=== PATIENT | male | born 1940 | race Caucasian/White ===

== ENCOUNTER 2017-10-28 20:40 | Emergency (ER) | payer MEDICARE, BC ==
[2017-10-28] MEDS ORDERED: diphenhydrAMINE 25 MG CAP ONE (20:59)
[2017-10-28] MEDS ORDERED: methylPREDNISolone Sod Succ/PF 125 MG/2 ML VIAL ONE (21:00)
[2017-10-28] MEDS ORDERED: Water For Inject, Bacteriostat 30 ML ONE (21:01)
== END 2017-10-28 21:20 | disposition home or self-care (01) ==
LOC: SCSER 20:40
DX: T78.40XA Allergy, unspecified, initial encounter; L03.114 Cellulitis of left upper limb; E78.5 Hyperlipidemia, unspecified; N40.0 Benign prostatic hyperplasia without lower urinary tract symptoms; Z79.82 Long term (current) use of aspirin; Z79.899 Other long term (current) drug therapy; M81.0 Age-related osteoporosis without current pathological fracture
CPT/HCPCS: 96372; J2930

== ENCOUNTER 2018-01-06 04:56 | Emergency (ER) | payer MEDICARE, BC | END 2018-01-06 05:42 | disposition home or self-care (01) | LOC: SCSER 04:56 | DX: R04.0 Epistaxis (principal); N40.0 Benign prostatic hyperplasia without lower urinary tract symptoms; K21.9 Gastro-esophageal reflux disease without esophagitis; E78.5 Hyperlipidemia, unspecified; M81.0 Age-related osteoporosis without current pathological fracture; Z79.899 Other long term (current) drug therapy; Z79.82 Long term (current) use of aspirin | CPT/HCPCS: 99283 ==

== ENCOUNTER 2019-01-06 10:16 | Emergency (ER) | payer MEDICARE, BC ==
[2019-01-06 11:08] LABS: #Basophils 0.1 thou/uL (0.0-0.2); #Eosinphils 0.2 thou/uL (0.0-0.7); #Lymphocytes 0.9 thou/uL (1.20-3.40); #Monocytes 0.6 thou/uL (0.11-0.59); #Neutrophils 3.2 thou/uL (1.40-6.50); %Basophils 1.3 % (0.0-1.0); %Eosinophils 3.9 % (0.0-10.0); %Lymphocytes 17.7 % (21.0-51.0); %Monocytes 11.9 % (0.0-10.0); %Neutrophils 65.2 % (42.0-75.0); Hemoglobin 11.8 g/dL (14.0-18.0); Mean Corpuscular HGB CONC 33.3 g/dL (32.0-36.0); Mean Corpuscular Hemoglobin 31.4 pg (27.0-31.0); Mean Corpuscular Volume 94.1 fL (78.0-98.0); Mean Platelet Volume 9.5 fL (7.4-10.4); Platelet Count 199 thou/uL (130-400); RBC Distribution Width 12.7 % (11.5-14.5); Red Blood Cell (RBC) Count 3.77 mill/uL (4.70-6.10); White Blood Cell (WBC) Count 4.9 thou/uL (4.8-10.8)
[2019-01-06] MEDS ORDERED: Morphine 4 MG/ML VIAL ONE (11:13)
[2019-01-06 11:23] LABS: ALT (SGPT) 13 U/L (8-55); AST (SGOT) 17 U/L (5-34); Albumin 3.6 g/dL (3.4-4.8); Alkaline Phosphatase 54 U/L (40-150); Anion Gap 14 mmol/L (10-20); BUN (Urea Nitrogen) 20 mg/dL (8.4-25.7); Bilirubin, Total 0.6 mg/dL (0.2-1.2); CK (CPK) 164 U/L (30-200); Calc. Creatinine Clearance 0 mL/min (70-130); Carbon Dioxide 26 mmol/L (23-31); Estimated GFR-MDRD 73; Globulin 3.3 g/dL (2.4-3.5); Glucose 108 mg/dL (83-110); Lipase 7 U/L (8-78); Protein, Total 6.9 g/dL (5.8-8.1)
[2019-01-06 11:26] LABS: Chloride 101 mmol/L (98-107); Potassium 4.5 mmol/L (3.5-5.1); Sodium 136 mmol/L (136-145)
--- NOTE | 2019-01-06 11:48 | CT ---
CT THORACIC SPINE WITH CORONAL AND SAGITTAL REFORMATIONS: HISTORY: Right-sided mid back pain. FINDINGS/IMPRESSION: Multilevel degenerative changes are present. There is mild to moderate compression of T7 vertebral b vimal, likely old. No subluxation or retropulsion is seen. There are chronic changes in the lung [place]. Vascular calcifications are present without evidence o f aneurysmal dilatation of the descending thoracic and upper abdominal aorta. POS: [facility]
--- NOTE | 2019-01-06 13:03 | CT ---
CTA OF THE CHEST AND ABDOMEN WITH CONTRAST: HISTORY: Right-sided mid back pain for 1 week. TECHNIQUE: Multiple contiguous axial images were obtained in a CTA of chest and abdomen with contrast. Three-D sagittal, coronal, and MIP reformats were performed. FINDINGS: The heart is normal in size without focal cardiac abnormality. No hilar or mediastinal lymphadenopat hy is seen. No focal infiltrates or suspicious pulmonary nodules are seen. Atelectasis is seen in the dependent aspect of the lungs. There are multiple remote right posterior rib fractures. The chest wall soft tissues are unremarkabl e. Gallstones are seen in the gallbladder. There are numerous cysts in the right kidney measuring up to 3.6 cm in size. The liver, left kidney, adrenal glands, spleen, and pancreas are unremarkable. The patient has a 2.1 cm fat-containing umbilical hernia. Degenerative changes are seen in the spine. There are bilateral L5 pars defects with grade I anterolisthesis of L5 on S1. No abdominal adenopath y is seen. The thoracic aorta is normal in caliber without evidence of aneurysmal dilatation or focal dissection . The abdominal aorta is also normal in caliber without significant aneurysmal dilatation or dissect ion. Mild atherosclerotic disease is seen in the infrarenal abdominal aorta. The celiac trunk, SMA, and JUAN C are patent. A single renal artery is seen on each side with minimal a therosclerotic disease. IMPRESSION: 1. No evidence of aortic dissection or aneurysmal dilatation. 2. Cholelithiasis. 3. Right renal cysts. 4. Umbilical hernia. POS: [facility]
== END 2019-01-06 12:33 | disposition home or self-care (01) ==
LOC: SCSER 10:16
DX: M54.6 Pain in thoracic spine (principal); K21.9 Gastro-esophageal reflux disease without esophagitis; E78.5 Hyperlipidemia, unspecified; Z79.899 Other long term (current) drug therapy; Z79.82 Long term (current) use of aspirin
CPT/HCPCS: 71275; 72128; 80053; 82550; 83690; 84484; 85025; 85379; 93005; 96374; J2270

== ENCOUNTER 2019-01-17 07:50 | Outpatient (CLI) | payer MEDICARE, BC ==
--- NOTE | 2019-01-17 11:20 | NM ---
EXAM: Nuclear medicine cardiac SPECT with EF and wall motion: HISTORY: Chest pain, dyslipidemia Protocol: Exam was performed using Lexiscan protocol. Patient was injected with 31.1 mCi technetium 99m sestamibi intravenously for stress images. Patient was injected with 10.3 mCi technetium 99m sestamibi intravenously for resting images. Multiple SPECT images are performed in the short axis, vertical long axis, and horizontal long axis. FINDINGS: No scan evidence for infarct or ischemia. TID:1.1 LHR:0.36 EDV:65 mL EF:66% Wall motion:Within normal limits. IMPRESSION: Unremarkable cardiac SPECT with EF and wall motion.
== END 2019-01-17 07:51 | disposition home or self-care (01) ==
LOC: NM 07:50
PROVIDERS: ATTEND Internal Medicine
DX: R07.9 Chest pain, unspecified (principal)
CPT/HCPCS: 78452; 93017; A9500

== ENCOUNTER 2020-01-20 08:27 | Outpatient (CLI) | payer MEDICARE, BC, OTHER ==
[2020-01-20 16:33] LABS: #Eosinphils 0.1 thou/uL (0.0-0.7); #Monocytes 0.5 thou/uL (0.11-0.59); #Neutrophils 3.4 thou/uL (1.40-6.50); %Basophils 0.7 % (0.0-1.0); %Eosinophils 2.1 % (0.0-10.0); %Lymphocytes 20.4 % (21.0-51.0); %Monocytes 10.3 % (0.0-10.0); %Neutrophils 66.5 % (42.0-75.0); Hemoglobin 13.1 g/dL (14.0-18.0); Mean Corpuscular HGB CONC 32.6 g/dL (32.0-36.0); Mean Platelet Volume 9.3 fL (7.4-10.4); Platelet Count 175 thou/uL (130-400); RBC Distribution Width 12.4 % (11.5-14.5); Red Blood Cell (RBC) Count 3.98 mill/uL (4.70-6.10); White Blood Cell (WBC) Count 5.1 thou/uL (4.8-10.8)
[2020-01-20 16:54] LABS: Anion Gap 12 mmol/L (10-20); BUN (Urea Nitrogen) 17 mg/dL (8.4-25.7); Calc. Creatinine Clearance 0 mL/min (70-130); Carbon Dioxide 29 mmol/L (23-31); Chloride 100 mmol/L (98-107); Estimated GFR-MDRD 73; Glucose 97 mg/dL (83-110); Potassium 4.7 mmol/L (3.5-5.1); Sodium 136 mmol/L (136-145)
[2020-01-21 12:19] LABS: SARS-CoV-2 MS2 Positive; SARS-CoV-2 N Gene Negative; SARS-CoV-2 S Gene Negative; SARS-CoV-2 orf1ab Negative
--- NOTE | 2020-01-22 18:04 | EKG ---
Test Reason : Blood Pressure : / mmHG Vent. Rate : 058 BPM Atrial Rate : 058 BPM P-R Int : 230 ms QRS Dur : 074 ms QT Int : 386 ms P-R-T Axes : 034 -32 043 degrees QTc Int : 378 ms Sinus bradycardia with 1st degree A-V block Left axis deviation Abnormal ECG When compared with ECG of 06-JAN-2019 10:49, No significant change was found Confirmed by SULMA WALTON (2) on 01/22/2020 6:04:29 PM Referred By: PRITI Confirmed By:SULMA WALTON
== END 2020-01-20 08:28 | disposition home or self-care (01) ==
LOC: LABBT 08:27
PROVIDERS: ATTEND Surgery
DX: Z01.818 Encounter for other preprocedural examination (principal); Z11.59 Encounter for screening for other viral diseases; K43.2 Incisional hernia without obstruction or gangrene
CPT/HCPCS: 80048; 85025; U0003; 87635; 93005; 93010

== ENCOUNTER 2020-01-23 07:03 | Day surgery (SDC) | payer MEDICARE, BC ==
[2020-01-17 11:36] VITALS: BMI 21.7
[2020-01-23] MEDS ORDERED: Bupivacaine 0.25% HCL 30 ML VIAL ONE (09:02)
[2020-01-23] MEDS ORDERED: Lidocaine 1% w/Epinephrine 1:100K 20 ML VIAL ONE (09:02)
[2020-01-23] MEDS ORDERED: Fentanyl 100 MCG/2 ML VIAL ONE ×3 (09:11→11:17)
[2020-01-23] MEDS ORDERED: SUGAMMADEX SODIUM 200 MG/2 ML VIAL ONE (09:11)
[2020-01-23] MEDS ORDERED: Promethazine HCl 25 MG/ML VIAL SLOW IVP PRN (10:45)
[2020-01-23] MEDS ORDERED: Promethazine HCl 25 MG/ML VIAL IM PRN (10:45)
[2020-01-23] MEDS ORDERED: Ondansetron HCl/PF 4 MG/2 ML Vial IVP PRN (10:45)
[2020-01-23] MEDS ORDERED: Rocuronium Bromide 10 MG/ML (10ML VIAL) ONE (11:43)
[2020-01-23] MEDS ORDERED: PROPOFOL 200 MG/20 ML VIAL ONE (11:43)
[2020-01-23] MEDS ORDERED: Lidocaine 1% PF 5 ML VIAL ONE (11:43)
[2020-01-23] MEDS ORDERED: Ondansetron PF 4 MG/2 ML Vial ONE (11:43)
[2020-01-23] MEDS ORDERED: EPHEDRINE 25 MG/5 ML SYRINGE ONE (11:43)
[2020-01-23] MEDS ORDERED: Labetalol HCl 100 MG/20 ML VIAL ONE (11:43)
[2020-01-23] MEDS ORDERED: Glycopyrrolate 0.2 MG/ML 5 ML SYRINGE ONE (11:43)
[2020-01-23] MEDS ORDERED: Esmolol 100 MG/10 ML VIAL ONE (11:43)
--- NOTE | 2020-01-23 11:48 | OP ---
DATE OF PROCEDURE: 01/23/2020 PREOPERATIVE DIAGNOSIS: Incisional hernia. POSTOPERATIVE DIAGNOSIS: Incisional hernia. PROCEDURE PERFORMED: Da Gonzalez laparoscopic incisional hernia repair with mesh, Bard Ventralex 8 cm. ANESTHESIA: General. ESTIMATED BLOOD LOSS: Minimal. COMPLICATIONS: None. FINDINGS: Incisional hernia. DESCRIPTION OF PROCEDURE: The patient was taken to the operating room and laid supine on the operating room table. After general anesthetic was obtained, the abdomen was prepped and draped in a sterile fashion. Left subcostal 5-mm Optiview trocar was placed in the usual fashion without injury. High-flow pneumoperitoneum was obtained. Left and right upper abdominal 8-mm robot trocars were placed under direct visualization. The 5-mm subxiphoid switched out to 11-mm robot balloon trocar. The robot was brought in from the feet and all ports were docked to the robot. The surgeon goes to the console. The peritoneum was taken down, exposing the defect just above the umbilicus from previous abdominal surgery. There was a 2nd smaller defect near the umbilicus. A 0 V-Loc suture was used to approximate the fascia in a running fashion. Both openings were closed with the same suture. An 8-cm Ventralex ST mesh was brought and the exposed mesh side was placed up against the fascia. The nonadherent was left down. A 2-0 V-Loc was used to suture it to the posterior fascia. All needles are removed from the abdomen and accounted for. All port sites were infiltrated using local anesthetic and removed under direct visualization. Pneumoperitoneum was let down. PDS was used to close the fascial defect from the subcostal incision. All incisions were irrigated and closed using 4-0 Monocryl and Dermabond. The patient was sent to Recovery in stable condition. All instrument counts, needle counts, and lap counts were correct. Job ID: [id number]
[2020-01-23] MEDS ORDERED: HYDROcodone/Acetaminophen 5/325 mg Tablet ONE (12:16)
== END 2020-01-23 13:35 | disposition home or self-care (01) ==
LOC: SDC 07:03
PROVIDERS: ATTEND Surgery
PROC: 0WUF4JZ Supplement Abdominal Wall with Synthetic Substitute, Percutaneous Endoscopic Approach (ICD-10-PCS; principal; 2020-01-23)
DX: K43.2 Incisional hernia without obstruction or gangrene (principal); Z79.82 Long term (current) use of aspirin; Z79.899 Other long term (current) drug therapy
CPT/HCPCS: J0690; J2001; J2405; J2704; J3010; S0020

== ENCOUNTER 2020-10-24 12:27 | Emergency (ER) | payer MEDICARE, BC ==
[2020-10-24] MEDS ORDERED: predniSONE 20 MG TAB ONE (13:47)
== END 2020-10-24 16:30 | disposition home or self-care (01) ==
LOC: ERS 12:27
DX: S32.011A Stable burst fracture of first lumbar vertebra, initial encounter for closed fracture (principal); M51.36 Other intervertebral disc degeneration, lumbar region; K21.9 Gastro-esophageal reflux disease without esophagitis; E78.5 Hyperlipidemia, unspecified; M19.90 Unspecified osteoarthritis, unspecified site; M81.0 Age-related osteoporosis without current pathological fracture; Z79.82 Long term (current) use of aspirin; Z79.899 Other long term (current) drug therapy; X58.XXXA Exposure to other specified factors, initial encounter
CPT/HCPCS: 72131; J7512

== ENCOUNTER 2020-10-29 11:19 | Emergency (ER) | payer MEDICARE, BC | END 2020-10-29 13:57 | disposition home or self-care (01) | LOC: ERS 11:19 | DX: S32.011A Stable burst fracture of first lumbar vertebra, initial encounter for closed fracture (principal); K21.9 Gastro-esophageal reflux disease without esophagitis; E78.5 Hyperlipidemia, unspecified; M19.90 Unspecified osteoarthritis, unspecified site; M81.0 Age-related osteoporosis without current pathological fracture; Z79.899 Other long term (current) drug therapy; Z79.82 Long term (current) use of aspirin; X50.1XXA Overexertion from prolonged static or awkward postures, initial encounter; Y92.39 Other specified sports and athletic area as the place of occurrence of the external cause | CPT/HCPCS: 99283 ==

== ENCOUNTER 2020-11-03 14:20 | Outpatient (CLI) | payer MEDICARE, BC | END 2020-11-03 14:21 | disposition home or self-care (01) | LOC: TBSIIMAG 14:20 | PROVIDERS: ATTEND Surgery | DX: M54.16 Radiculopathy, lumbar region (principal) | CPT/HCPCS: 72100 ==

== ENCOUNTER 2020-12-04 11:10 | Outpatient (CLI) | payer MEDICARE, BC | END 2020-12-04 11:11 | disposition home or self-care (01) | LOC: TBSIIMAG 11:10 | PROVIDERS: ATTEND Surgery | DX: S32.009A Unspecified fracture of unspecified lumbar vertebra, initial encounter for closed fracture (principal) | CPT/HCPCS: 72100 ==

== ENCOUNTER 2022-03-03 08:07 | Outpatient (CLI) | payer MEDICARE, BC | END 2022-03-03 08:08 | disposition home or self-care (01) | LOC: SCSMRI 08:07 | PROVIDERS: ATTEND Anesthesiology Pain Medicine | DX: S22.089G Unspecified fracture of T11-T12 vertebra, subsequent encounter for fracture with delayed healing (principal); M47.816 Spondylosis without myelopathy or radiculopathy, lumbar region; R60.0 Localized edema; Z98.890 Other specified postprocedural states | CPT/HCPCS: 72148 ==

== ENCOUNTER 2023-04-28 13:06 | Outpatient (CLI) | payer MEDICARE, BC | END 2023-04-28 13:07 | disposition home or self-care (01) | LOC: BICMAMMO 13:06 | PROVIDERS: ATTEND Internal Medicine | DX: M81.0 Age-related osteoporosis without current pathological fracture (principal); M85.851 Other specified disorders of bone density and structure, right thigh | CPT/HCPCS: 77080 ==

== ENCOUNTER 2023-06-27 13:53 | Day surgery (SDC) | payer MEDICARE, BC ==
[~2023-06-27 13:53] MED LIST: ROMOSOZUMAB-AQQG 210 MG/2.34 ML SYR SQ SCH
[2023-06-27 14:48] VITALS: BP 113/70; TEMP 97.4
== END 2023-06-27 15:10 | disposition home or self-care (01) ==
LOC: ONC/OP 13:53
PROVIDERS: ATTEND Internal Medicine
DX: M81.0 Age-related osteoporosis without current pathological fracture (principal)
CPT/HCPCS: 96372; J3111

== ENCOUNTER 2023-07-26 14:00 | Day surgery (SDC) | payer MEDICARE, BC ==
[2023-07-26 15:06] VITALS: BP 86/55; TEMP 97.8
== END 2023-07-26 15:15 | disposition home or self-care (01) ==
LOC: ONC/OP 14:00
PROVIDERS: ATTEND Internal Medicine
DX: M81.0 Age-related osteoporosis without current pathological fracture (principal)
CPT/HCPCS: 96372; J3111

== ENCOUNTER 2023-09-21 13:49 | Day surgery (SDC) | payer MEDICARE ==
[2023-09-21] MEDS: ROMOSOZUMAB-AQQG 210 MG/2.34 ML SYR SQ SCH (14:18)
[2023-09-21 14:27] VITALS: BP 110/70; TEMP 97.8
== END 2023-09-21 14:27 | disposition home or self-care (01) ==
LOC: ONC/OP 13:49
PROVIDERS: ATTEND Internal Medicine
DX: M81.0 Age-related osteoporosis without current pathological fracture (principal)
CPT/HCPCS: 96372; J3111

== ENCOUNTER 2023-10-19 13:50 | Day surgery (SDC) | payer MEDICARE ==
[2023-10-19] MEDS: ROMOSOZUMAB-AQQG 210 MG/2.34 ML SYR SQ SCH (14:13)
[2023-10-19 15:04] VITALS: BP 98/56; TEMP 97.6
== END 2023-10-19 14:21 | disposition home or self-care (01) ==
LOC: ONC/OP 13:50
PROVIDERS: ATTEND Internal Medicine
DX: M81.0 Age-related osteoporosis without current pathological fracture (principal)
CPT/HCPCS: 96372; J3111

== ENCOUNTER 2023-12-21 09:15 | Outpatient (CLI) | payer MEDICARE ==
[2023-12-21 11:11] LABS: #Basophils 0.04 10x3/uL (0.0-0.2); #Eosinphils 0.21 10x3/uL (0.0-0.5); #Monocytes 0.54 10x3/uL (0.0-1.1); #Neutrophils 3.25 10x3/uL (1.5-8.4); %Basophils 0.8 % (0.0-2.0); %Eosinophils 4.2 % (0.0-6.0); %Lymphocytes 19.4 % (18.0-47.0); %Monocytes 10.7 % (0.0-10.0); %Neutrophils 64.5 % (40.0-75.0); Hematocrit 37.5 % (38.8-50.0); Hemoglobin 12.6 g/dL (13.5-17.5); Mean Corpuscular HGB CONC 33.6 g/dL (32.0-36.0); Mean Corpuscular Hemoglobin 33.2 pg (27.0-33.0); Mean Corpuscular Volume 98.7 fl (81.2-95.1); Mean Platelet Volume 11.6 fl (7.4-10.4); Platelet Count 193 10x3/uL (150-450); RBC Distribution Width 13.1 % (11.5-14.5)
[2023-12-21 11:31] LABS: Anion Gap 12 mmol/L (10-20); BUN (Urea Nitrogen) 28 mg/dL (8.4-25.7); Calc. Creatinine Clearance 0 mL/min (70-130); Calcium 9.1 mg/dL (7.8-10.44); Carbon Dioxide 29 mmol/L (23-31); Chloride 102 mmol/L (98-107); Estimated GFR 62; Glucose 91 mg/dL (83-110); Potassium 4.2 mmol/L (3.5-5.1); Sodium 139 mmol/L (136-145)
== END 2023-12-21 09:16 | disposition home or self-care (01) ==
LOC: LABBT 09:15
PROVIDERS: ATTEND Surgery
DX: Z01.818 Encounter for other preprocedural examination (principal); K44.9 Diaphragmatic hernia without obstruction or gangrene
CPT/HCPCS: 80048; 85025; 93005; 93010

== ENCOUNTER 2023-12-21 09:30 | Inpatient (IN) | payer MEDICARE ==
[2023-12-21 10:01] VITALS: BMI 19.6
[2023-12-28] MEDS ORDERED: Sodium Chloride 0.9% 100 ML ONE (06:34)
[2023-12-28] MEDS ORDERED: CEFAZOLIN 2 GM VIAL ONE (06:34)
[2023-12-28] MEDS ORDERED: EPINEPHrine 1 MG/ML VIAL ONE (06:46)
[2023-12-28] MEDS ORDERED: Bupivacaine 0.25% HCL 30 ML VIAL ONE ×2 (06:46→08:23)
[2023-12-28] MEDS ORDERED: PROPOFOL 20 ML ONE (07:10)
[2023-12-28] MEDS ORDERED: Dexamethasone 4 mg/ml Vial ONE (07:11)
[2023-12-28] MEDS ORDERED: Lidocaine 1% PF 5 ML VIAL ONE (07:11)
[2023-12-28] MEDS ORDERED: Rocuronium Bromide 10 MG/ML (10ML VIAL) ONE (07:11)
[2023-12-28] MEDS ORDERED: Ondansetron PF 4 MG/2 ML Vial ONE (07:11)
[2023-12-28] MEDS ORDERED: ePHEDrine Sulfate 50 MG/10 ML VIAL ONE (08:16)
[2023-12-28] MEDS ORDERED: fentaNYL PF 100 MCG/2 ML SYRINGE ONE (08:46)
[2023-12-28] MEDS ORDERED: Esmolol 100 MG/10 ML VIAL ONE (08:57)
[2023-12-28] MEDS ORDERED: SUGAMMADEX SODIUM 200 MG/2 ML VIAL ONE ×2 (09:23→09:35)
[2023-12-28] MEDS ORDERED: fentaNYL 50 mcg/mL 1 mL Vial ONE ×2 (09:55→10:04)
[2023-12-28] MEDS ORDERED: HYDROmorphone 0.5 MG/0.5 ML SYRINGE ONE ×3 (10:18→11:23)
[2023-12-28] MEDS ORDERED: hydrALAZINE 20 MG/ML VIAL ONE (12:40)
== END 2023-12-28 13:38 | disposition home or self-care (01) | DRG 328 ==
LOC: SURG A 12-28 06:02 → EDSTATUS 12-28 09:30
PROVIDERS: ADMIT Surgery; ATTEND Surgery
PROC: 0BQT4ZZ Repair Diaphragm, Percutaneous Endoscopic Approach (ICD-10-PCS; principal; 2023-12-28)
PROC: 8E0W4CZ Robotic Assisted Procedure of Trunk Region, Percutaneous Endoscopic Approach (ICD-10-PCS; 2023-12-28)
DX: K44.9 Diaphragmatic hernia without obstruction or gangrene (principal); K21.9 Gastro-esophageal reflux disease without esophagitis; M19.90 Unspecified osteoarthritis, unspecified site; K59.00 Constipation, unspecified; M81.0 Age-related osteoporosis without current pathological fracture; E78.5 Hyperlipidemia, unspecified; Z90.49 Acquired absence of other specified parts of digestive tract; Z87.891 Personal history of nicotine dependence; Z79.899 Other long term (current) drug therapy; Z85.46 Personal history of malignant neoplasm of prostate
CPT/HCPCS: J0171; J0360; J0665; J1100; J1170; J2405; J2704; J3010; J3490

== ENCOUNTER 2024-01-19 13:51 | Day surgery (SDC) | payer MEDICARE ==
[~2024-01-19 13:51] MED LIST changes: +ROMOSOZUMAB-AQQG 105 MG/1.17 ML SYR SQ SCH; -ROMOSOZUMAB-AQQG 210 MG/2.34 ML SYR SQ SCH
[2024-01-19] MEDS: ROMOSOZUMAB-AQQG 105 MG/1.17 ML SYR SQ SCH (14:19)
[2024-01-19 14:40] VITALS: BP 98/64; TEMP 98.1
== END 2024-01-19 14:40 | disposition home or self-care (01) ==
LOC: ONC/OP 13:51
PROVIDERS: ATTEND Internal Medicine
DX: M81.0 Age-related osteoporosis without current pathological fracture (principal); Z88.8 Allergy status to other drugs, medicaments and biological substances
CPT/HCPCS: 96372; J3111